=== PATIENT | male | born 1960 | race African-American/Black ===

== ENCOUNTER 2021-12-01 10:25 | Outpatient (RCR) | payer BC, OTHER | END 2021-12-22 | disposition home or self-care (01) | LOC: ONC 10:25 | PROVIDERS: ATTEND Radiology Radiation Oncology | DX: C61 Malignant neoplasm of prostate (principal); I10 Essential (primary) hypertension; E78.00 Pure hypercholesterolemia, unspecified; I25.10 Atherosclerotic heart disease of native coronary artery without angina pectoris; Z90.89 Acquired absence of other organs | CPT/HCPCS: 99204 ==

== ENCOUNTER → 2021-12-24 | Outpatient (CLI) | payer BC | END | disposition home or self-care (01) | LOC: PREOP 05:31 | PROVIDERS: ATTEND Radiology Radiation Oncology | DX: Z01.818 Encounter for other preprocedural examination (principal) ==

== ENCOUNTER 2021-12-31 11:24 | Day surgery (SDC) | payer BC ==
[2021-12-31] VITALS (11 sets, daily range): BP systolic 126–152; BP diastolic 89–106
[~2021-12-31] VITALS: Ht 182.9 cm; Wt 105.0 kg
[~2021-12-31 11:24] MED LIST: ACET-2650 PO; ASPI-999 PO; ATOR40TA PO; CLOP75TA69 PO; CYCL10TA25 PO; GABA800T10 PO; HYDR12.56 PO; ISOS60TA63 PO; LANS30CA43 PO; MELO15TA14 PO; METO-333 PO
--- NOTE | 2021-12-31 11:41 | Progress Note-Pre Operative ---
Pre-Operative Progress Note H&P Reviewed The H&P was reviewed, patient examined and no changes noted. Date Seen by Provider: Dec 31, 2021 Time Seen by Provider: 11:40 Date H&P Reviewed: Dec 31, 2021 Time H&P Reviewed: 11:40 Pre-Operative Diagnosis: Prostate cancer cT1c, PSA 10.35, [place] 7 (3+4) TANESHA VELAZQUEZ MD Dec 31, 2021 11:41
[2021-12-31] MEDS ORDERED: LACTATED RINGERS 1,000 ML IV PRN (11:45)
--- NOTE | 2021-12-31 11:45 | Discharge Inst-Simple/Standard ---
Discharge Inst-Standard Reconcile Patient Problems Problems Reviewed?: Yes Discharge Medications New, Converted or Re-Newed RX: Other (Patient already has) Patient Instructions/Follow Up Plan of Care/Instructions/FU: Treatment planning ct scan at [facility] cancer center 01/14/22 at 9:00 a.m. Activity as Tolerated: Yes Discharge Diet: No Restrictions TANESHA VELAZQUEZ MD Dec 31, 2021 11:45
[2021-12-31] MEDS ORDERED: fentaNYL INJ 100 MCG/2 ML AMP ONE (14:27)
[2021-12-31] MEDS ORDERED: proPOfol 200 MG/20 ML (DIPRIVAN) VIAL IV ONE (14:27)
[2021-12-31] MEDS ORDERED: LIDOCAINE PF 2% 5 ML (XYLOCAINE) VIAL ONE (14:27)
[2021-12-31] MEDS ORDERED: MIDAZOLAM 2 MG/2 ML (VERSED) VIAL ONE (14:35)
[2021-12-31] MEDS ORDERED: SEVOFLURANE (ULTANE) 15 ML INHAL SOLN ONE (14:48)
[2021-12-31] MEDS ORDERED: ONDANSETRON 4 MG/2 ML (SDV) Z0FRAN ONE (14:48)
[2021-12-31] MEDS ORDERED: GLYCOPYRROLATE 0.2 MG/ML (ROBINUL) 2 ML VIAL ONE (14:52)
--- NOTE | 2021-12-31 15:06 | Anesthesia-General Post-Op ---
General Patient Condition Mental Status/LOC: Same as Preop Cardiovascular: Satisfactory Nausea/Vomiting: Absent Respiratory: Satisfactory Pain: Controlled Complications: Absent Post Op Complications Complications None Follow Up Care/Instructions Patient Instructions None needed. Anesthesia/Patient Condition Patient Condition Patient is doing well, no complaints, stable vital signs, no apparent adverse anesthesia problems. No complications reported per nursing. [place] [facility] [place] ESTRELLA ROD CRNA Dec 31, 2021 15:06
[2021-12-31] MEDS ORDERED: ONDANSETRON 4 MG/2 ML (SDV) Z0FRAN IVP PRN (15:15)
[2021-12-31] MEDS ORDERED: HYDROmorphone 2 MG/ML VIAL (DILAUDID) IV ONE (15:15)
--- NOTE | 2021-12-31 15:37 | Progress Note-Post Operative ---
Post-Operative Progess Note Surgeon (s)/Java Sdet (s) Surgeon Joni GIBSON MD Java Sdet: TANESHA VELAZQUEZ MD Pre-Operative Diagnosis Prostate cancer cT1c, PSA 10.35, [place] 7 (3+4) Post-Operative Diagnosis Same as preop Procedure & Operative Findings Date of Procedure 12/31/21 Procedure Performed/Findings (1) Placement of fiducial gold seed markers (2) Injection of biodegradable hydrogel prostate-rectal spacer utilizing the [employer] system Anesthesia Type General Estimated Blood Loss Estimated blood loss (mL): None Specimens/Packing Specimens Removed None Packing: None TANESHA VELAZQUEZ MD Dec 31, 2021 15:37
== END 2021-12-31 16:50 | disposition home or self-care (01) ==
LOC: SDC 11:24 → EDBD 11:24 → SDC 16:50
PROVIDERS: ATTEND Radiology Radiation Oncology
DX: C61 Malignant neoplasm of prostate (principal); I10 Essential (primary) hypertension; I73.9 Peripheral vascular disease, unspecified; I25.10 Atherosclerotic heart disease of native coronary artery without angina pectoris; E78.5 Hyperlipidemia, unspecified; K21.9 Gastro-esophageal reflux disease without esophagitis; M19.90 Unspecified osteoarthritis, unspecified site; E78.00 Pure hypercholesterolemia, unspecified; N40.0 Benign prostatic hyperplasia without lower urinary tract symptoms; Z90.49 Acquired absence of other specified parts of digestive tract; Z90.89 Acquired absence of other organs; Z87.891 Personal history of nicotine dependence; Z79.01 Long term (current) use of anticoagulants; Z79.82 Long term (current) use of aspirin; Z79.899 Other long term (current) drug therapy; Z95.1 Presence of aortocoronary bypass graft; Z80.3 Family history of malignant neoplasm of breast; Z80.41 Family history of malignant neoplasm of ovary
CPT/HCPCS: 55874; 55876; 87081; C1889

== ENCOUNTER → 2022-01-19 | Outpatient (RCR) | payer BC | END | disposition home or self-care (01) | LOC: EDBD → ONC 01-14 09:03 | PROVIDERS: ATTEND Radiology Radiation Oncology | DX: Z51.0 Encounter for antineoplastic radiation therapy (principal); C61 Malignant neoplasm of prostate; I11.9 Hypertensive heart disease without heart failure; E78.00 Pure hypercholesterolemia, unspecified; I25.10 Atherosclerotic heart disease of native coronary artery without angina pectoris; I73.9 Peripheral vascular disease, unspecified; Z95.1 Presence of aortocoronary bypass graft; Z90.89 Acquired absence of other organs | CPT/HCPCS: 36415; 77300; 77301; 77338; 77385; 84153 ==

== ENCOUNTER → 2022-02-19 | Outpatient (RCR) | payer BC | END | disposition home or self-care (01) | LOC: ONC 01-20 13:47 | PROVIDERS: ATTEND Radiology Radiation Oncology | DX: Z51.0 Encounter for antineoplastic radiation therapy (principal); C61 Malignant neoplasm of prostate; I11.9 Hypertensive heart disease without heart failure; E78.00 Pure hypercholesterolemia, unspecified; I25.10 Atherosclerotic heart disease of native coronary artery without angina pectoris; I73.9 Peripheral vascular disease, unspecified; Z95.1 Presence of aortocoronary bypass graft; Z90.89 Acquired absence of other organs | CPT/HCPCS: 77385; G0463; 77336 ==

== ENCOUNTER 2022-02-26 13:16 | Outpatient (RCR) | payer BC | END 2022-03-21 | disposition home or self-care (01) | LOC: ONC 13:16 | PROVIDERS: ATTEND Radiology Radiation Oncology | DX: Z51.0 Encounter for antineoplastic radiation therapy (principal); C61 Malignant neoplasm of prostate; I11.9 Hypertensive heart disease without heart failure; E78.00 Pure hypercholesterolemia, unspecified; I25.10 Atherosclerotic heart disease of native coronary artery without angina pectoris; I73.9 Peripheral vascular disease, unspecified; Z95.1 Presence of aortocoronary bypass graft; Z90.89 Acquired absence of other organs | CPT/HCPCS: 77336; 77385 ==

== ENCOUNTER 2022-04-02 10:28 | Outpatient (RCR) | payer BC | END 2022-04-21 | disposition home or self-care (01) | LOC: ONC 10:28 | PROVIDERS: ATTEND Radiology Radiation Oncology | DX: C61 Malignant neoplasm of prostate (principal); I11.9 Hypertensive heart disease without heart failure; E78.00 Pure hypercholesterolemia, unspecified; I25.10 Atherosclerotic heart disease of native coronary artery without angina pectoris; I73.9 Peripheral vascular disease, unspecified; Z95.1 Presence of aortocoronary bypass graft; Z90.89 Acquired absence of other organs | CPT/HCPCS: 84153; G0463; 36415; 99213 ==

== ENCOUNTER 2022-09-24 10:27 | Outpatient (RCR) | payer BC | END 2022-10-21 | disposition home or self-care (01) | LOC: ONC 10:27 | PROVIDERS: ATTEND Radiology Radiation Oncology | DX: C61 Malignant neoplasm of prostate (principal) | CPT/HCPCS: 36415; 84153; 99213 ==

== ENCOUNTER 2023-03-25 09:06 | Outpatient (RCR) | payer BC ==
[~2023-03-25 09:06] MED LIST changes: +CLOP-31 PO; -CLOP75TA69 PO
== END 2023-04-21 | disposition home or self-care (01) ==
LOC: ONC 09:06
PROVIDERS: ATTEND Radiology Radiation Oncology
DX: C61 Malignant neoplasm of prostate (principal)
CPT/HCPCS: 36415; 84153; 99213